=== PATIENT | male | born 2005 | race Caucasian/White ===

== ENCOUNTER → 2025-01-22 10:17 | Outpatient (REF) | payer OTHER, SELFPAY | LOC: MRI 10:17 | PROVIDERS: ATTENDING PHYSICIAN Orthopaedic Surgery | DX: T81.49XD Infection following a procedure, other surgical site, subsequent encounter (principal); M65.871 Other synovitis and tenosynovitis, right ankle and foot | CPT/HCPCS: 73723; A9575 ==

== ENCOUNTER → 2025-01-23 10:53 | Outpatient (REF) | payer OTHER, SELFPAY ==
[2025-01-23 12:24] LABS: Hematocrit 44.7 % (39.0-52.0); Hemoglobin 15.4 g/dL (13.0-18.0); Mean Corp Hgb Conc. 34.5 g/dL (33.0-37.0); Mean Corpuscular Volume 85.8 fL (80.0-94.0); Nucleated Red Blood Cells % 0 % (-); Platelet Count 277 10^3/uL (130-400); Red Cell Dist. Width 12.2 % (11.5-14.5)
[2025-01-23 13:15] LABS: C-Reactive Protein < 5.00 mg/L (0.0-10.00)
== END ==
LOC: REG 10:53
PROVIDERS: ATTENDING PHYSICIAN Orthopaedic Surgery
DX: T81.49XD Infection following a procedure, other surgical site, subsequent encounter (principal)
CPT/HCPCS: 36415; 85025; 85652; 86140

== ENCOUNTER 2025-03-26 03:44 | Inpatient (IN) | payer OTHER, SELFPAY ==
[2025-03-25 20:44] VITALS: BP 145/95
[2025-03-26] VITALS (8 sets, daily range): BP systolic 100–132; BP diastolic 56–85; PULSE 90; O2SAT 99; BMI 21.5
--- NOTE | 2025-03-26 00:16 | ED.GENMED ---
History of Present Illness
General
Chief Complaint: Fever
Source: patient and family
Exam Limitations: none
Time Seen by Provider: 03/25/25 23:03
Nursing documentation reviewed up to this point in time: agreed with
History of Present Illness
History of Present Illness:
20-year-old male with no reported chronic medical issues but unfortunate complicated recent postsurgical course after right foot surgery presents to the ED with his mother for evaluation of redness, pain and swelling near PICC line in his left upper
extremity. In short, patient had a surgery on his right foot (through [facility]) earlier this year that has unfortunately required multiple return trips to the OR for infection. Most recently he was admitted to [facility] he says for almost a month
being released on 03/22/2025 for staph infection near his right foot wound and unfortunately Klebsiella bacteremia as well. Patient also notes that he had a PICC line placed in the right arm during his hospitalization that required removal after
DVT developed and he remains on Eliquis for this. He had PICC line placed in the left arm prior to discharge from this most recent admission and is currently receiving IV ceftriaxone and IV daptomycin. He says that he had a chlorhexidine dressing
placed on the PICC line prior to discharge; he says he has had allergic reactions to chlorhexidine in the past. He says that quite quickly after dressing was placed he started to notice redness around the insertion site that he attributed to the
chlorhexidine dressing. It was removed and replaced with a different type of dressing but despite this he has had increasing redness, pain, itching and yellowish drainage around the PICC line since which ultimately prompted him to come to the ER
this evening. No fevers or chills noted. No other acute complaints. He says that he no longer wishes to receive any care at [facility] after his multiple complications.
Review of Systems
Review of Systems
All Other Systems: ROS reviewed and negative except as documented in HPI and ROS
Constitutional: Denies fever or chills
Respiratory: Denies trouble breathing
Cardiac: Denies chest pain
ABD/GI: Denies abdominal pain
: Denies flank pain
Musculoskeletal: Denies neck pain or back pain
Skin: Reports other (Redness and pain around PICC site)
Neurological: Denies headache
Phy Exam
Physical Exam
Physical Exam:
General: Awake, alert, oriented x3; no acute distress
Head: Normocephalic, atraumatic
Eyes: Conjunctiva normal, sclera anicteric
Throat: Airway intact, handling secretions
Neck: Trachea midline, supple without meningismus
Lungs: Breathing comfortably without distress
Heart: Regular rate and rhythm, no murmurs, gallops, or rubs
Neuro: Grossly intact
Skin: Patient has erythema around the PICC insertion site as well as some linear erythema and some raised papules that trace the outline of dressing rather clearly�see attached picture
Extremities: Patient has a bulky dressing in place on the right lower extremity, extremities are generally warm and well-perfused
Scores
Heart Failure Risk
Heart Failure Risk Score: Not Applicable
Heart Score for Chest Pain Patients
STEMI patient?: Not applicable
Withdrawal Assessment of Alcohol
Withdrawal Assessment Completed?: Not applicable
Sepsis
Sepsis Screening
Sepsis Assessment: Sepsis Ruled Out
Sepsis Screen
Sepsis Screen: Sepsis Ruled Out
Date: 03/26/25
Time: 01:28
Course
Orders/Labs/Results
Orders:
Orders
03/26/25 00:00
Blood Culture Q30M
BABAR Source: Blood/Venous
Specimen Description:
03/26/25 00:01
Urinalysis Reflex To Culture Urgent
03/26/25 00:15
INFECTIOUS DISEASE CONSULT Routine
Consulting Provider: Meño Boykin
Was physician already notified: Yes
03/26/25 00:21
Wound Culture [Wound/Abscess/Other Culture] Urgent
BABAR Source: Arm
Specimen Description: Left
Date Specimen was Collected: 03/26/25
Time Specimen was Collected: 00:18
CR Chest - 2 Views Urgent
Comment:
Reason For Exam: PICC line
03/26/25 00:30
Blood Culture Q30M
BABAR Source: Blood/Venous
Specimen Description:
03/26/25 01:12
Blood Culture Urgent
BABAR Source: Blood/Venous
Specimen Description:
Comment: PICC culture
03/26/25 01:13
Complete Blood Count/With Diff Urgent
Comprehensive Metabolic Panel Urgent
Tip Culture [Patient Line Culture] Urgent
BABAR Source: Catheter Tip
Specimen Description:
Date Specimen was Collected: 03/26/25
Time Specimen was Collected: 01:12
03/26/25 01:27
DC PICC Line [Discontinue IV Access] As Directed
Abnormal Lab Results
03/26/25
01:13
Monocytes % 9.5 H %
(1.7-9.3)
03/26/25 01:13
Vital Signs
Initial and Last Documented VS:
Initial Vital Signs
Temp Pulse Resp BP Pulse Ox
36.7 C 122 22 145/95 94
03/25/25 20:44 03/25/25 20:44 03/25/25 20:44 03/25/25 20:44 03/25/25 20:44
Last Documented Vital Signs
Temp Pulse Resp BP Pulse Ox
37.1 C 77 18 101/60 99
03/26/25 00:25 03/26/25 00:25 03/26/25 00:25 03/26/25 00:25 03/26/25 00:25
MDM/Problems Addressed
Differential Diagnosis Includes:
Allergic rash/dermatitis, cellulitis/PICC infection; DVT considered less likely given patient is on anticoagulation
MDM/Problems Addressed:
20-year-old male presents with erythema, pain, drainage from the skin around recently inserted PICC line after complicated admission at [facility] as described above. He is tachycardic but has otherwise acceptable vital signs�no fever here. Physical
exam is as above. Will plan to check labs. Will send peripheral cultures as well as culture from the PICC line. I also sent a culture of some of the yellowish drainage from the skin around the PICC. I did discuss with the patient transfer back
to [facility] given extensive care there recently but patient is adamant that he will not go back to [facility]. Will make a records request with [facility]. Will discuss with infectious disease. Reassess after the above.
Discussed with infectious disease recommended removing PICC line and sending tip for culture. Recommended continuing with ceftriaxone and daptomycin for now And we can follow-up on tip culture, blood cultures, skin cultures. Will admit for
continued treatment. Discussed with hospitalist.
*Pulse Oximetry
SaO2: 94
Oxygen Mode of Delivery: Room air
Patient hypoxic: no (94%)
*Critical Care Note
Total Time (30-74mins, 75-104mins- exclusive of procedures): Not Applicable
Data Reviewed
Source: patient and family
Patient Management
Discussion with other providers: Hospitalist (Discussed with hospitalist) and Professor Of [employer] (Discussed with infectious disease)
Escalation/DeEscalation of care consider admission/obs:
Admission indicated
ED Attending Note
-
Portions of this chart may have been created with voice recognition software.� Occasional wrong word or��sound alike� substitutions may have occurred due to the inherent limitations of voice recognition software.
Discharge Plan
Departure
Patient Disposition: Admit
Date of Disposition: 03/26/25
Time of Disposition: 01:00
Admit to doctor: Eulogio
Presentation/result/management discussed w/ accepting MD/DO: Hospitalist
Discharge Problem:
PICC line infection
Referrals:
UNKNOWN - PT DOES,NOT KNOW [Family Provider]
Interventions
Interventions:
*Risk Screen - Suicide Last Done: 03/25/25 20:44
*Neglect/Abuse Screening Last Done: 03/25/25 20:44
ED- Neurological Assessment Last Done: 03/26/25 00:23
Discharge Date and Time
Print Language: OCCITAN
[2025-03-26 01:24] LABS: Hematocrit 43.3 % (39.0-52.0); Hemoglobin 14.9 g/dL (13.0-18.0); Mean Corp Hgb Conc. 34.4 g/dL (33.0-37.0); Mean Corpuscular Volume 80.9 fL (80.0-94.0); Nucleated Red Blood Cells % 0 % (-); Platelet Count 280 10^3/uL (130-400); Red Cell Dist. Width 11.9 % (11.5-14.5)
--- NOTE | 2025-03-26 01:26 | VATNOTE ---
"Called to ED #30 to assess Left Arm PICC that was placed at [facility] about a week ago. Site is red with blotchy red reeder all around where the dressing was applied. Pt c/o pain and itching. Site cleaned and redressed. Per "Cherise"Kale who spoke with ID the PICC line needs to be removed and tip sent for culture. Line removed without incident and PIV placed without incident."
[2025-03-26 01:48] LABS: ALT (SGPT) 40 U/L (0-50); AST (SGOT) 42 U/L (17-59); Albumin 5.1 g/dl (3.5-5.0); Alkaline Phosphatase 60 U/L (38-126); Blood Urea Nitrogen 24 mg/dl (9-20); Calcium 10.0 mg/dl (8.4-10.2); Carbon Dioxide 28 mmol/L (22-30); Chloride 105 mmol/L (98-107); Glucose 81 mg/dl (70-99); Potassium 4.3 mmol/L (3.5-5.1); Sodium 143 mmol/L (135-145); Total Protein 8.6 g/dl (6.3-8.2); eGFR > 60.00
--- NOTE | 2025-03-26 03:07 | HPS.HSE ---
Family Physician
-
Family Physician: NOT KNOW UNKNOWN - PT DOES
Chief Complaint
-
Itching / rash at PICC site.
History of Present Illness
Patient is a 20y M with complicated recent PMH significant for R ankle infection, bacteremia and multiple surgeries who presents to ED complaining of rash, itching and discharge at LUE PICC site.
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 He was able to complete the season and then sought evaluation afterwards. He was seen by Cornel who recommended surgery on the R ankle which he underwent
in September 2024. Patient notes that he developed an MSSA infection following that surgery. He had a wash out completed in October and was treated with a course of antibiotics. He was eventually cleared for return to athletics; however, shortly after
increasing his physical activity he had severe pain and swelling in the R ankle. He was evaluated in [place] at that time and was treated with multiple courses of abx both PO and IV. Ultimately, he was referred back to his original surgeon at
[facility] for further evaluation.
He was re-evaluated in January and underwent another wash-out surgery and Wound Vac placement.
He was admitted most recently 02/25 - 03/22. He underwent a total of 4 surgical explorations, wash outs, deep cultures during that hospitalization - the most recent of which was on 03/10.
His surgical cultures during that visit were reportedly positive for Staph epi and Baccilus. He also developed fever and chills and had blood cultures during that stay which were positive for Klebsiella.
Patient was treated with IV antibiotics. He had a PICC placed in the RUE which was removed due to rash +/- catheter-associated DVT.
He had a new PICC placed in the E and notes that he developed a similar rash within 24 hours of placement. He reports an allergy to chlorhexidine which causes rash.
Patient was discharged to home but has had increasing itching, redness, rash and some discharge from PICC site since that time. He presented to the ED this evening for further evaluation.
His R ankle has felt well since his most recent surgery on 03/10. His sutures were removed prior to his discharge from [place].
He denies any fevers, chills, N/V/D, urinary complaints, etc.
Medical History
Past Medical History
Past Medical History: Reports None
Past Surgical History: Reports Other
Additional Past Surgical History:
Right Ankle Surgery (September 2024 - Dr. Avendaño / [facility] / [facility])
- Wash Out (October 2024)
- Wash Out (January 2025)
- Wash Out x 4 (February - March 2025)
Social History
Tobacco: Vaping
Alcohol: Occasional
Drug: None
Family History
Family History: Other (Father: Ulcerative Colitis MGF: Hypertension)
Allergies / Home Medications
Allergies reflects when Allergies were last updated in [facility].
Home Medications with original date entered in [facility]
Allergy/Medication List:
Allergies
Allergy/AdvReac Type Severity Reaction Status Date / Time
cefdinir (From Omnicef) Allergy Unknown Verified 03/25/25 20:43
chlorhexidine Allergy Rash Verified 03/25/25 20:44
vancomycin Allergy Unknown Verified 03/25/25 20:42
Home Medications
apixaban 2.5 mg tablet (Eliquis) 2.5 mg PO BID 03/26/25
ceftriaxone 2 gram intravenous solution 2 g IV DAILY 03/26/25
daptomycin 500 mg intravenous solution 750 mg IV DAILY 03/26/25
hydroxyzine HCl 25 mg tablet 25 mg PO BID 03/26/25
oxycodone 5 mg tablet 5 mg PO Q6H PRN Pain 03/26/25
pantoprazole 40 mg tablet,delayed release (Protonix) 40 mg PO DAILY 03/26/25
tizanidine 4 mg capsule 4 mg PO Q8H PRN spasms 03/26/25
Review of Systems
-
History Source: Patient
A 12 point ROS was completed and negative except as noted: Yes
Constitutional: Denies Fever or Chills
Respiratory: Denies Cough or Trouble Breathing
Cardiac: Denies Chest Pain or Palpitations
Abdomen/GI: Denies Abdominal Pain, Nausea, Vomiting or Diarrhea
: Denies Dysuria or Flank Pain
Musculoskeletal: Reports Joint Pain; Denies Edema
Skin: Reports Itching and Rash
Neurological: Denies Dizzy or Headache
Psych: Reports Depression and Anxiety
Physical Exam
Vital Signs
Vital Signs
Temp Pulse Resp BP Pulse Ox
98.2 F 87 18 110/77 100
03/26/25 02:17 03/26/25 02:17 03/26/25 02:17 03/26/25 02:17 03/26/25 02:17
Physical Exam
General: Other (20y M in mild distress due to itching / rash.)
HEENT: Moist mucous membranes and Other (Pupils dilated. )
Respiratory: Clear; No Wheezes, Rales or Rhonchi
Cardiac: S1/S2 and Regular Rhythm; No Murmur
GI: Soft, Non Tender, Non Distended and Normal Bowel Sounds
Musculoskeletal: No Clubbing, No Cyanosis and Other (R ankle with HIRA dressing in place. No bleeding / discharge.)
Skin: Other (Contact dermatitis of the LUE at site of prior PICC.)
Neuro: AO x 3
Laboratory Results
-
03/26/25 01:13
03/26/25 01:13
Laboratory Results
Total Bilirubin 1.0 mg/dl (0.2-1.3) 03/26/25 01:13
AST 42 U/L (17-59) 03/26/25 01:13
ALT 40 U/L (0-50) 03/26/25 01:13
Alkaline Phosphatase 60 U/L (38-126) 03/26/25 01:13
Impression/Plan
-
A/P: Patient is a 20y M with PMH significant for R ankle surgery and multiple subsequent complications / infections who presents to ED complaining of LUE rash.
Contact Dermatitis
- Admit for further evaluation and treatment.
- Exam and history seems consistent with contact dermatitis from PICC dressing +/- chlorhexidine.
- PICC and dressing removed in the ED (PICC tip sent for culture).
- Supportive care with Benadryl, etc.
- Follow for clinical improvement.
Klebsiella Bacteremia
- Unclear origin. Continue current regimen of ceftriaxone and daptomycin for now.
- Obtain records for [facility] stays for review.
- ID evaluation for additional recommendations.
Right Ankle Surgical Site / Joint Infection
- Stable. No pain, etc at present.
- On daptomycin for previously isolated MSSA and recent Staph epi.
- Most recent surgery (03/10/25) reportedly with negative operative cultures.
- Clarify weight-bearing status with [facility] records.
- PT / OT evaluations.
- Follow-up with Dr. Avendaño after discharge. Local [facility] belenal if any new / acute issues arise.
RUE Catheter-Associated Thrombus
- Continue Eliquis - increase to treatment dose of 5mg BID.
DVT Prophylaxis: On Eliquis
Code Status: Full
[2025-03-26] MEDS: BENADRYL 25 MG IV ×4 (03:17→21:31)
[2025-03-26] MEDS: ROXICODONE 5 MG PO ×2 (03:17→09:25)
[2025-03-26] MEDS: ZANAFLEX 4 MG PO ×3 (03:34→20:57)
[2025-03-26 06:24] LABS: Hematocrit 35.7 % (39.0-52.0); Hemoglobin 12.5 g/dL (13.0-18.0); Mean Corp Hgb Conc. 35.0 g/dL (33.0-37.0); Mean Corpuscular Volume 81.1 fL (80.0-94.0); Platelet Count 245 10^3/uL (130-400); Red Cell Dist. Width 11.9 % (11.5-14.5)
[2025-03-26 06:48] LABS: Blood Urea Nitrogen 21 mg/dl (9-20); Calcium 9.2 mg/dl (8.4-10.2); Carbon Dioxide 29 mmol/L (22-30); Chloride 106 mmol/L (98-107); Estimated Creatinine Clearance > 125 ml/min; Glucose 142 mg/dl (70-99); Potassium 3.9 mmol/L (3.5-5.1); Sodium 140 mmol/L (135-145); eGFR > 60.00
[2025-03-26] MEDS: ELIQUIS 5 MG PO ×2 (07:56→20:58)
[2025-03-26] MEDS: ATARAX 25 MG PO ×2 (07:56→20:58)
--- NOTE | 2025-03-26 08:43 | W.PN.UPDATE ---
Addendum entered and electronically signed by Mathew Healy MD 03/26/25 13:14:
RN reported of patient having more pronounced rash after topical triamcinolone application
Will change formulation to hydrocortisone cream as may have reacted to other chemicals in the ointment,
Original Note:
Update Note
Progress Note Update
Nonbillable note
Chart reviewed from [facility] physician through [facility] physician link
Unable to locate any microbiological data, may not have access to the information
Afebrile/no leukocytosis
RLE dressing/HIRA wrap in place
Will need to continue on daptomycin/rocephin
Allergic/contact dermatitis - at left arm picc area
new PICC line to be placed
allergic to chlorhexidine? vs glue from dressing
on iv benadryl and oral atarax
triamcinolone ointment ordered to apply twice daily on the affected area.
Right upper extremity venous ultrasound on 03/01 -nonocclusive deep venous thrombosis of the right proximal brachial vein.
Unable to verify that patient is on Eliquis 2-1/2 mg twice daily, unclear why patient getting half of treatment dose for DVT
Repeat right US Venous doppler ordered
Patient reports to have repeat US in 1 week
--- NOTE | 2025-03-26 09:30 | VATNOTE ---
PICC order noted. Will discuss with ordering MD due to recent PICC being sent for culture.
--- NOTE | 2025-03-26 09:59 | CON.ID ---
Addendum entered and electronically signed by Meño Boykin DO 03/26/25 17:04:
I personally performed a history and physical exam of the patient and discussed management with the resident. I reviewed the resident's note and agree with the documented findings and plan of care HPI/CC.
Clinical presentation consistent with contact dermatitis of the left upper extremity secondary to PICC dressing.
Right foot examined. Prior incision well-healed on the medial aspect of the ankle. No open wounds noted. No periwound erythema. No evidence of SSTI.
Await culture, although given clinical presentation, little concern for PICC infection at present.
Original Note:
Consultation
-
Date/Time Consultation Requested: 03/26/2025 00:15
Date/Time Consultation Performed: 03/26/2025 08:15
Requesting Provider: Dr. Warner Henley
Performing Provider: Dr. Meño Boykin, Dr. Geoffrey Villafana
Reason for Consultation: Possible PICC infection
Chief Complaint / Past History
Chief Complaint
Erythema around PICC line
History of Present Illness
20-year-old male with a significant past medical history of multiple right ankle surgeries for infections with bacteremia over the past year presented due to increased erythema, pain and possible drainage coming from the skin around his PICC line on
his left arm. 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 He is found to have infection with staph MSSA at that time. He underwent washout in October
and was given Keflex. In November, he stopped antibiotics and thought the infection was cleared. First week of December when patient was visiting his dad in [place], he was found to have increased pain and swelling and possible pus coming out of his
right ankle. He underwent washout and surgery in [place] and was given Ancef at the time. However he was still felt that his infection did not resolve. In January 19, he flew back and had further washout with Dr. Avendaño at [place]. He was found
to have Staph epi and Bacillus and was given IV vancomycin. However the vancomycin was found to be 'killing' his white blood cells and he had severe headaches and hot flashes and shallow breathing following administration of vancomycin. Following
that washout, he developed worsening symptoms and was found to be bacteremic with blood cultures growing Klebsiella. At that time, patient also had a wound VAC placed. He then went back to [place] on February 25 but was admitted until March
. He had another washout and deep cultures recently taken on March 10. He has been on ceftriaxone and daptomycin since late February and he was to continue this course for 6 weeks. A PICC line was placed before he was discharged from
[place] however he has allergy to chlorhexidine and he had a rash on his left arm before he was discharged. He thought there was possible pus coming out of the PICC line as well.
In the ED today, patient was found to be afebrile, no leukocytosis but had erythema around the PICC insertion site alongside some raised papules that traced out the line of the dressing. He continued to have bulky dressing placed on the right lower
extremity. His previous PICC line was removed. Blood cultures, wound cultures and PICC line cultures were taken at this time.
Past History
Additional Past Medical History:
None
Additional Past Surgical History:
Right Ankle Surgery (September 2024 - Dr. Avendaño / [facility] / [facility])
- Wash Out (October 2024)
- Wash Out (January 2025) - [place]
- Wash Out x 4 (February - March 2025)
Allergy History:
cefdinir (From Omnicef) Allergy (Verified 03/25/25 20:43)
Unknown
chlorhexidine Allergy (Verified 03/25/25 20:44)
Rash
vancomycin Allergy (Verified 03/25/25 20:42)
Unknown
Medications Reviewed: Yes
Current Antibiotics:
Daptomycin 750mg q24
Ceftriaxone 2gm q24
Social History
Tobacco: Non-Smoker
Alcohol: Occasional
Drug: Marijuana (Former smoker, hasn't smoked in 3-4 years)
Family History
Family History: Other (Father- Ulcerative Colitis)
Review of Systems
Review of Systems
General: Negative Fever or Chills
Cardiovascular: Negative Chest Pain
Respiratory: Negative Cough
Musculoskeletal: Joint Pain
Skin / Hair / Nails: Rash and Pruritis
Neurological: Negative Headache
Vital Signs
Temp Pulse Resp BP Pulse Ox
97.6 F 77 18 123/59 100
03/26/25 07:24 03/26/25 06:13 03/26/25 06:13 03/26/25 07:24 03/26/25 07:24
Physical Exam
Physical Exam
Constitutional: No Acute Distress, Comfortable and Non-toxic
Head: Normocephalic
Eyes: Sclera Anicteric
Cardiovascular: Regular Rate and S1/S2; Negative Murmur or Peripheral Edema
Pulmonary: Clear, Symmetric and Non Labored
Gastrointestinal: Soft, Non Tender, Non Distended and Normal Bowel Sounds
Musculoskeletal: Other (Erythema around previous PICC insertion site on left arm improving, bulky dressing placed on right lower extremity, able to move toes and has good peripheral vascular perfusion)
Skin: Warm, Dry and Rash (Erythema around PICC insertion site around left arm)
Neurological: Awake, Alert, Oriented and AO x 3
Psychological: Calm
Lines: PICC (New PICC line in place in right arm, no erythema noted)
.
Lab / Diagnostic Study Results
03/26/25 06:09
03/26/25 06:09
Abs Immat Gran (auto) 0.0 10^3/uL (0-0.05) 03/26/25 01:13
Absolute Neuts (auto) 3.5 10^3/uL (1.4-6.5) 03/26/25 01:13
Absolute Lymphs (auto) 2.3 10^3/uL (1.2-3.4) 03/26/25 01:13
Absolute Monos (auto) 0.6 10^3/uL (0.1-0.6) 03/26/25 01:13
Absolute Basos (auto) 0.1 10^3/uL (0-0.2) 03/26/25 01:13
Immature Gran % 0.1 % (0-0.5) 03/26/25 01:13
Neutrophils % 52.2 % (42.2-75.2) 03/26/25 01:13
Lymphocytes % 33.3 % (20.5-51.1) 03/26/25 01:13
Monocytes % 9.5 % (1.7-9.3) H 03/26/25 01:13
Eosinophils % 3.9 % (0-6) 03/26/25 01:13
Basophils % 1.0 % (0-2) 03/26/25 01:13
Microbiology Results
Micro:
03/26/25 00:21 Wound Culture - Pending
Arm - Left Gram Stain - Preliminary
03/26/25 01:59 Blood Culture - Pending
Blood/Venous
03/26/25 01:13 Catheter Tip Culture - Pending
Catheter Tip
03/26/25 01:12 Blood Culture - Pending
Blood/Venous
Imaging:
01/22/2025 MRI Right LE W and W/o Contrast: Moderate tibiotalar joint effusions most prominent component protruding posteriorly, with synovitis. No marla abscess. No MR evidence for osteomyelitis. Low-grade lateral ankle sprain.
Assessment / Plan
# Erythema around previous PICC insertion site
# History of right ankle surgery with subsequent multiple washouts
# Right upper extremity catheter associated thrombus
# History of Klebsiella bacteremia
Plan:
No leukocytosis, fever or chills noted
Cultures obtained from PICC line, blood, wound
Follow cultures
Follow temperature curve, WBC count
Continue previous therapy with daptomycin, ceftriaxone
Erythema on left arm most likely due to contact dermatitis and is improving with Benadryl
Less concern for cellulitis
[2025-03-26] MEDS: TRIAMCINOLONE ACETONIDE 0.025% OINTMENT 1 APPLIC TOPICAL (10:11)
[2025-03-26] MEDS: STERILE WATER FOR INJECTION 20 ML IV (12:19)
[2025-03-26] MEDS: ROCEPHIN 2000 MG IV (12:19)
[2025-03-26] MEDS: CUBICIN 30 MG IV (12:20)
--- NOTE | 2025-03-26 12:59 | PTCARENOTE ---
rash on left upper extrem increasing in size. picture shown to Dr. dueñas.
--- NOTE | 2025-03-26 14:45 | EDCM ---
CM reviewed chart and met with pt and his mother bedside in ED. Pt lives with his mother in 2 story home, he stays mostly on second floor. Has had 8 surgeries on R foot/ankle since September 2024.
Independent in ADLs, personal care and ambulation at baseline. Currently ambulates with crutches. Is college student at [employer].
Current with [facility] for IV antibiotics, PICC was removed by Vascular Access Team in ED, no hx SNF
Does not currently have PCP
Pharmacy: [facility]
Anticipate discharge home with resumption of IV abx, CM will continue to follow for all discharge planning needs.
[2025-03-26] MEDS: HYDROCORTISONE 2.5% CREAM 1 APPLIC TOPICAL (20:58)
[2025-03-27] MEDS: BENADRYL 25 MG IV ×2 (03:44→20:09)
[2025-03-27] MEDS: ATARAX 25 MG PO ×2 (07:28→20:08)
[2025-03-27] MEDS: HYDROCORTISONE 2.5% CREAM 1 APPLIC TOPICAL ×2 (07:28→20:08)
[2025-03-27] MEDS: ELIQUIS 5 MG PO ×2 (07:28→20:08)
[2025-03-27 07:44] VITALS: BP 108/76
--- NOTE | 2025-03-27 13:16 | W.PN.UPDATE ---
Update Note
Progress Note Update
Patient requesting to have right ankle wound examined as he is concerned of infection. Discussed with ID and ID doc have examined right ankle wound yesterday in the ER , clinically there is no concern of ongoing infection.
Patient remains somewhat persistent about 'drainage' and 'infection' . stating came to [facility] for 'infected wound' , clarified to patient that there is nothing to suggest an active infection. Patient currently on dual antibiotics and this has to
be continued.
I have recommended patient to continue follow-up with primary surgeon in office, apparently patient have follow up next week.
Patient is medically stable for discharge after PICC line has been placed.
Continue Eliquis for now and can be discontinued on f/u with PC as at this point RUE venous doppler is clear.
--- NOTE | 2025-03-27 14:27 | CM ---
Addendum entered by Chastity Gil 03/27/25 15:49:
CM spoke with Kevin from [facility] ([phone]), confirmed patient is current with infusion. CM will fax clinicals to [phone]. CM will call Kevin if patient stable for d/c over weekend.
Original Note:
CM reviewed chart, reviewed with Hospitalist.
Plan for PICC line to be placed, continue with [facility].
Referral placed in [facility], call to on-call services to confirm patient is current with services, awaiting return call.
Plan to continue previous therapy with daptomycin, ceftriaxone.
CM will await confirmation from [facility] for patient to resume services, will fax clinical updates to infusion company.
Plan; PICC placed, resumption of [facility]
--- NOTE | 2025-03-27 15:09 | W.PN.HOSP.TC ---
Today's Communication/Plan
-
see note
Assessment / Plan
Assessment / Plan
Contact Dermatitis
- Triamcinolone ointment was prescribed although patient may have reacted to chemical in ointments and was noted to have worsening? of dermatitis. Changed to hydrocortisone cream which is better tolerated by patient
- Continue supportive care with Benadryl for pruritus
Right Ankle Surgical Site / Joint Infection
- Stable. No pain, etc at present.
- On daptomycin for previously isolated MSSA and recent Staph epi.
- Most recent surgery (03/10/25) reportedly with negative operative cultures.
- ID evaluated wound and no clear concern of any active infection.
- Patient is planned to follow-up with [place] surgery team
- PT / OT evaluations.
- Follow-up with Dr. Avendaño after discharge. Local [facility] eval if any new / acute issues arise.
Recent Klebsiella Bacteremia
- Unclear origin. Continue current regimen of ceftriaxone and daptomycin for now.
- Obtain records for [facility] stays for review.
- ID evaluation for additional recommendations.
RUE Catheter-Associated Thrombus
Possible right upper extremity hematoma
- Repeat ultrasound done yesterday did not show any acute clot
- Right arm PICC line was placed today although noted to having new swelling with tenderness in the biceps, suspecting intramuscular hematoma
- Stat CT right upper extremity ordered
- Arm elevation recommended
- PICC in place based on xray , avoid using it pending CT RUE. Asked RN to get peripheral IV alternatively for providing meds.
DVT Prophylaxis: On Eliquis
Code Status: Full
Care plan discussed with ID
Total time spent 56 minutes
Anticipated Discharge: Within 24 hours
Subjective/Interval History
-
Date of Service: March 27, 2025
Reported new right arm swelling post picc line
patient anxious and tearful at time
Objective Data
-
Vital Signs:
Vital Signs
Temp Pulse Resp BP Pulse Ox
97.8 F 90 18 108/76 98
03/27/25 07:44 03/27/25 07:44 03/27/25 07:44 03/27/25 07:44 03/27/25 07:44
Review of Systems
-
Respiratory: Reports No Symptoms
Cardiac: Reports No Symptoms
Abdomen/GI: Reports No Symptoms
Physical Exam
-
General: Appears in Distress and Pain
HEENT: Negative Oxygen
Musculoskeletal: No Clubbing, No Cyanosis, No Edema and Edema, Right Upper Extrem (Picc line area swelling)
Skin: Warm
Neuro: Awake, Alert and Oriented
--- NOTE | 2025-03-27 15:24 | VATNOTE ---
Called by pt's PCN to assess PICC site. PICC was placed in the R brachial vein with no issues, tip is SVC. Pt now c/o swelling and pain at insertion site. Upon assessment by this VAT RN, arm is more swollen than when PICC was placed. Hospitalist in
to see pt. Will continue to monitor.
[2025-03-27 15:40] VITALS: BP 124/69
[2025-03-27] MEDS: ALPRAZOLAM ODT 0.5 MG PO (16:00)
[2025-03-27] MEDS: ROCEPHIN 2000 MG IV (16:01)
[2025-03-27] MEDS: STERILE WATER FOR INJECTION 20 ML IV (16:01)
[2025-03-27] MEDS: CUBICIN IV (16:22)
[2025-03-27] MEDS: CUBICIN 30 MG IV (18:08)
[2025-03-27 19:18] LABS: Urine Character Clear (Clear)
[2025-03-27 19:29] LABS: Urine Red Blood Cell 0-2 /HPF (0-2); Urine Squamous Cell None seen /LPF (Few)
[2025-03-27] MEDS: ZANAFLEX 4 MG PO (20:21)
[2025-03-27] MEDS: XANAX 0.5 MG PO (22:15)
[2025-03-27] MEDS: PROTONIX 40 MG PO (22:59)
[2025-03-27 23:48] VITALS: BP 94/58
[2025-03-28 08:00] VITALS: BP 119/80
[2025-03-28] MEDS: PROTONIX 40 MG PO (08:16)
[2025-03-28] MEDS: HYDROCORTISONE 2.5% CREAM 1 APPLIC TOPICAL (08:16)
[2025-03-28] MEDS: ATARAX 25 MG PO (08:16)
[2025-03-28] MEDS: ELIQUIS 5 MG PO (08:16)
--- NOTE | 2025-03-28 09:07 | VATNOTE ---
03/28 - RUE PICC LINE REDRESSED. MINIMAL EXTREMITY SWELLING NOTED IN COMPARISON TO YESTERDAY EVALUATION.
PT C/O MILD PAIN TO INSERTION SITE 'WHEN HE PRESSES ON IT'. PT ADVISED NOT TO PHYSICALLY PRESS ANYWHERE ON OR NEAR RUE PICC LINE. PT ALSO TRYING TO TOUCH PICC LINE SITE DURING DRESSING CHANGE. PT ADVISED NOT TO TOUCH THE STERILE FIELD. PT EDUCATED
ON INFECTION RISKS AND VERBALIZED UNDERSTANDING.
[2025-03-28] MEDS: CUBICIN 30 MG IV (12:11)
[2025-03-28] MEDS: ROCEPHIN 2000 MG IV (12:13)
[2025-03-28] MEDS: STERILE WATER FOR INJECTION 20 ML IV (12:14)
--- NOTE | 2025-03-28 12:33 | W.DCSUMMARY ---
Discharge Summary
Discharge Data
Date of Admission: 03/26/25
Date of Discharge: 03/28/25
-
Pending Results: Yes
Additional Pending Results:
Blood cultures and urine cultures
Hospital Course
Initial presentation
20y M with PMH significant for R ankle surgery and multiple subsequent complications / infections who presents to ED complaining of LUE rash.
'Multiple right ankle surgeries for infections with bacteremia over the past year presented due to increased erythema, pain and possible drainage coming from the skin around his PICC line on his left arm. Patient first injured his right ankle
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 He is found to have infection with staph MSSA at that time. He underwent washout in October and was given Keflex. In November, he stopped antibiotics
and thought the infection was cleared. First week of December when patient was visiting his dad in [place], he was found to have increased pain and swelling and possible pus coming out of his right ankle. He underwent washout and surgery in
[place] and was given Ancef at the time. However he was still felt that his infection did not resolve. In January 19, he flew back and had further washout with Dr. Avendaño at [place]. He was found to have Staph epi and Bacillus and was given IV
vancomycin. However the vancomycin was found to be 'killing' his white blood cells and he had severe headaches and hot flashes and shallow breathing following administration of vancomycin. Following that washout, he developed worsening symptoms
and was found to be bacteremic with blood cultures growing Klebsiella. At that time, patient also had a wound VAC placed. He then went back to [place] on February 25 but was admitted until March 22. He had another washout and deep cultures
recently taken on March 10. He has been on ceftriaxone and daptomycin since late February and he was to continue this course for 6 weeks. A PICC line was placed before he was discharged from [place] however he has allergy to chlorhexidine and
he had a rash on his left arm before he was discharged. He thought there was possible pus coming out of the PICC line as well. In the ED, patient was found to be afebrile, no leukocytosis but had erythema around the PICC insertion site alongside
some raised papules that traced out the line of the dressing. He continued to have bulky dressing placed on the right lower extremity. His previous PICC line was removed. Blood cultures, wound cultures and PICC line cultures were taken at this
time. ' -ID consultation
Diagnosis present at time of admit:
Right Ankle Surgery (September 2024 - Dr. Avendaño / [facility])
- Wash Out (October 2024)
- Wash Out (January 2025) - [place]
- Wash Out x 4 (February - March 2025)
Procedures
Placement of PICC line
Hospital course by diagnosis:
1. Contact Dermatitis
- Triamcinolone ointment was prescribed although patient may have reacted to chemical in ointments and was noted to have worsening of dermatitis.
Changed to hydrocortisone cream which is better tolerated by patient
- Continue supportive care with Benadryl for pruritus
2. Right Ankle Surgical Site / Joint Infection
- Stable. No pain, etc at present.
- On daptomycin for previously isolated MSSA and recent Staph epi.
- Most recent surgery (03/10/25) reportedly with negative operative cultures.
- ID evaluated wound and no clear concern of any active infection.
- Patient is planned to follow-up with [place] surgery team
- Follow-up with Dr. Avendaño after discharge. Local [facility] if any new / acute issues arise.
Continue home IV infusions
3. Recent Klebsiella Bacteremia
- Unclear origin. Continue current regimen of ceftriaxone and daptomycin for now.
- ID evaluation done in hospitalization
3. RUE Catheter-Associated Thrombus with right upper extremity hematoma
- Repeat ultrasound done yesterday did not show any acute clot
- Right arm PICC line was placed and it was noted that he had new swelling with tenderness in the biceps, suspecting intramuscular hematoma
CT showed:
Small subcutaneous hematoma of the medial mid right upper arm at the insertion of the PICC line
(measuring approximately 3.6 x 0.6 x 4.3 cm (series 201, image 82; series 202, image 34).
No discrete rim-enhancing fluid collection to indicate a soft tissue abscess.
The visualized subcutaneous soft tissues and musculature are otherwise unremarkable by CT.
The right upper extremity vasculature appears patent.
The right upper extremity veins were patent on the recent ultrasound evaluation.
No acute fracture or dislocation.
The shoulder and elbow joint alignments are maintained.
Cholelithiasis
- Arm elevation recommended
- PICC in place based on xray - OK to use PICC as outpatient
Patient advised that if swelling worsens, or if he develops hand symptoms he should obtain immediate medical evaluation.
DVT Prophylaxis while hospitalized: On Eliquis - continue at discharge
Code Status at discharge: Full
Discharge Plan
-
Patient Disposition: Home (Routine Discharge)
Discharge Diagnosis/Procedures: Contact dermatitis, Right Ankle Surgical Site / Joint Infection, Recent Klebsiella Bacteremia, RUE Catheter-Associated Thrombus,
Diet: No restrictions and As tolerated
Activity: As tolerated
Driving Restrictions: As prior to admission
Bathing Restrictions: None
Referrals:
UNKNOWN - PT DOES,NOT KNOW [Family Provider]
Prescriptions:
New
hydrocortisone 2.5 % Cream
1 applic topical BID Qty: 28 0RF
Eliquis 5 mg Tablet
5 mg PO BID Qty: 30 0RF
Continued
ceftriaxone 2 gram Recon Soln
2 g IV DAILY
pantoprazole [Protonix] 40 mg Tablet,Delayed Release (Dr/Ec)
40 mg PO DAILY
hydroxyzine HCl 25 mg Tablet
25 mg PO BID
oxycodone 5 mg Tablet
5 mg PO Q6H PRN (Reason: Pain)
daptomycin 500 mg Recon Soln
750 mg IV DAILY
tizanidine 4 mg Capsule
4 mg PO Q8H PRN (Reason: spasms)
Discontinued
Eliquis 2.5 mg Tablet
2.5 mg PO BID
Discharge Orders:
Discharge Patient (As Directed); Ordered 03/28/25
Ordered By: Pascual Alvarado
Discharge Date and Time
Print Language: CITIZEN OF [place]
--- NOTE | 2025-03-28 12:55 | CM ---
CM reviewed chart, patient for d.c today.
Patient reports he has nursing provided through [facility].
CM spoke with Kevin from [facility], aware patient for d.c today, confirmed patient will have nurse visit for tomorrow 03/29.
Patient confirms transport home from [facility]. Patient reports he has an appt with his surgeon tomorrow at 10:00 a.m. then will need nursing visit.
CM will continue to follow.
Plan; home with [facility]
[2025-03-28 13:30] VITALS: BP 118/78
== END 2025-03-28 14:05 | disposition home or self-care (01) | DRG 607 ==
LOC: 4 WEST ACU 03:44
PROVIDERS: Radiology Diagnostic Radiology; ADMITTING PHYSICIAN Hospitalist; ATTENDING PHYSICIAN Internal Medicine; CONSULT PHYSICIAN Internal Medicine Infectious Disease; EMERGENCY PHYSICIAN Emergency Medicine
PROC: 02PYX3Z Removal of Infusion Device from Great Vessel, External Approach (ICD-10-PCS; 2025-03-26)
PROC: 02HV33Z Insertion of Infusion Device into Superior Vena Cava, Percutaneous Approach (ICD-10-PCS; 2025-03-27)
PROC: B5181ZA Fluoroscopy of Superior Vena Cava using Low Osmolar Contrast, Guidance (ICD-10-PCS; 2025-03-27)
DX: L23.3 Allergic contact dermatitis due to drugs in contact with skin (principal); T80.219A Unspecified infection due to central venous catheter, initial encounter; T80.212A Local infection due to central venous catheter, initial encounter; R78.81 Bacteremia; B96.1 Klebsiella pneumoniae [K. pneumoniae] as the cause of diseases classified elsewhere; S40.021A Contusion of right upper arm, initial encounter; T49.95XA Adverse effect of unspecified topical agent, initial encounter; Y84.8 Other medical procedures as the cause of abnormal reaction of the patient, or of later complication, without mention of misadventure at the time of the procedure; Z79.01 Long term (current) use of anticoagulants
CPT/HCPCS: 71045; 73201; 80048; 80053; 81003; 81015; 85025; 85027; 87040; 87070; 87084; 87086; 87205; 93971; 97166; J0878; Q9967